=== PATIENT | female | born 1975 | race Caucasian/White ===

== ENCOUNTER 2021-10-08 06:39 | Emergency (ER) | payer MEDICAID, SELFPAY ==
[2021-10-08 07:13] VITALS: BP 133/77; PULSE 82; RESP 19; TEMP 36.6; O2SAT 100; BMI 23.3
--- NOTE | 2021-10-08 09:45 | ED.GENADULT ---
HPI - General Adult General Chief complaint: General Medical Stated complaint: muscle spasms back neck mid head shoulder blades Time Seen by Provider: 10/08/21 09:21 Source: patient Mode of arrival: ambulatory Limitations: no limitations History of Present Illness HPI narrative: Patient presents emergency department for evaluation of muscle spasms to the neck. She states that she has been having ongoing issues with back and neck pain since she has been driving/traveling across country for the past 4 years. She reports that 1 month ago she was evaluated in [place] had an MRI of her neck and back at that time, and was advised that she had rheumatoid arthritis. It is unclear whether she had any blood work obtained. However, she recently moved to this area about 2 weeks ago so she has not established any care with a primary care provider or any specialists. She was previously taking gabapentin BuSpar and hydroxyzine reportedly for her anxiety and baclofen for lower back pain. None of which seem to be helping her muscle spasms. She denies any headache, vision changes, dizziness, lightheadedness, numbness or tingling, chest pain, palpitations, shortness of breath, difficulty breathing, difficulty with ambulation. Related Data Previous Rx's Medication Instructions Recorded cyclobenzaprine 10 mg tablet 10 mg PO TID PRN muscle spasm #14 10/08/21 tabs Allergies Allergy/AdvReac Type Severity Reaction Status Date / Time No Known Allergies Allergy Verified 10/08/21 09:53 Review of Systems Review of Systems: Constitutional: No weight loss, fever, chills, weakness or fatigue. Skin: No rash or itching. Cardiovascular: No chest pain, chest pressure or chest discomfort. No palpitations or pedal edema. Respiratory: No shortness of breath, cough or sputum production. Gastrointestinal: No anorexia, nausea, vomiting or diarrhea. No abdominal pain Genitourinary: No burning micturition. No urinary frequency or incontinence. Musculoskeletal: Positive muscle spasms. Psychiatric: No depression or anxiety. [facility] Past Medical History Attestation statement: The following information was validated with the patient. Source: old records reviewed Social History Social History Advance Directives: No Advance Directives Information Provided: No Physical Exam ED Vital Signs: Vital Signs - 24 hr 10/08/21 07:13 Temperature 98 F Pulse Rate 82 Respiratory Rate 19 Blood Pressure 133/77 Pulse Oximetry 100 Oxygen Delivery Method Room Air BMI result Body Mass Index 23.3 Vital signs have been reviewed as normal and appeared to be correct. Blood pressure normal.? Heart rate normal.? Respiration rate normal. Temperature normal.? Oxygen saturation normal. Appearance: Alert.?Oriented to person, place and time. No acute distress.?Normal affect. Eyes: Pupils equal, round and reactive to light.? ENT: Pharynx normal.?? Neck: Normal inspection.? Neck supple.??Tenderness upon palpation of the paraspinal muscles CVS: Heart sounds normal. Normal heart rate and rhythm.? Pulses normal.?? Respiratory: No respiratory distress.? Lung sounds clear to auscultation bilaterally?? Abdomen: Soft and non-tender. Skin: Skin warm and dry.? Normal skin color.? Extremities: No lower extremity edema.? Neuro: Moves all extremities spontaneously. Sensation intact bilaterally. CN II-XII intact. No focal neuro deficits. Ambulates with normal steady gait. Course Course Course Narrative: Patient is a 46-year-old female with a reported past medical history of rheumatoid arthritis who presents emergency department for muscle spasms of her neck and shoulder muscles. This is been ongoing, but seems exacerbated over the past 4 days. Has reportedly ran out of her baclofen as well at the same time. Pain appears most consistent with muscular pain. On neurological exam there are no deficits. Not consistent with spinal fracture, spinal infection, epidural abscess. No high risk past medical history including incontinence, fever, immunosuppression, recent surgery or lumbar puncture, coagulopathy, significant trauma, recent unintentional weight loss, pulsatile mass, history of cancer, history of TB, history of IV drug use that would warrant MRI or CT. On exam no concern for cauda equina syndrome. No imaging is currently indicated at this time. Plan for discharge home with prescription for cyclobenzaprine, and given resources to contact new primary care provider to establish care with, discussed worsening signs and symptoms to return back to the emergency department for, and patient agreed with plan. Discharge Plan Discharge Clinical Impression: Cervical paraspinal muscle spasm Patient Disposition: Home, Self-Care Instructions: Muscle Spasm (ED) Additional Instructions: As we discussed the symptoms you are describing seem most consistent with spasming of the muscles along her neck and shoulders. You have been given a new medication to trial, cyclobenzaprine, this is a muscle relaxer. It may make you drowsy while taking this medication therefore you should not drive, operate machinery, or drink alcohol while taking the medication. It is important that you contact local primary care providers to establish care for further evaluation and treatment. You may return to the emergency department with any new or worsening symptoms or concerns Prescriptions: New cyclobenzaprine 10 mg tablet 10 mg PO TID PRN (Reason: muscle spasm) Qty: 14 0RF Interventions: ED Discharge Assessment Last Done: 10/08/21 10:04 Discharge Date/Time: 10/08/21 10:05
== END 2021-10-08 10:05 | disposition home or self-care (01) ==
PROVIDERS: Emergency Provider Emergency Medicine
DX: M62.838 Other muscle spasm (principal); M54.2 Cervicalgia; M06.9 Rheumatoid arthritis, unspecified
CPT/HCPCS: 99283

== ENCOUNTER 2021-10-13 02:09 | Emergency (ER) | payer MEDICAID, SELFPAY ==
[2021-10-13 02:14] VITALS: BP 147/96; PULSE 100; RESP 16; TEMP 36.8; O2SAT 99; BMI 24.1
[2021-10-13 02:37] LABS: UPreg QC Valid YES; Urine Pregnancy NEGATIVE (NEGATIVE)
[2021-10-13 02:38] LABS: Appearance Urine Clear; Color Urine Yellow; Glucose Urine UA Negative (Negative); Leukocyte Esterase Urine Negative (Negative); Nitrite Urine Negative (Negative); PH 5.5 (5.0-8.0); Specific Gravity - Urine 1.025 (1.005-1.025); Urine Blood Moderate (2+) (Negative); Urine Ketones Negative (Negative); Urine Protein Negative (Neg-Trace)
[2021-10-13 02:56] LABS: Amphetamine Screen Urine Not Detected (Not Detect); Barbiturates, Urine Not Detected (Not Detect); Benzodiazepines Screen Urine Not Detected (Not Detect); Cannabinoid Screen Urine POSITIVE (Not Detect); Cocaine Screen Urine Not Detected (Not Detect); Fentanyl, urine Not Detected (Not Detect); Opiate Screen Urine Not Detected (Not Detect); Phencyclidine Screen Urine Not Detected (Not Detect)
[2021-10-13 03:04] LABS: Bacteria Urine None Seen (None Seen); Hyaline Casts Urine 0-2 /LPF (0-2); RBC Urine 0-2 /HPF (0-2); WBC Urine 0-5 /HPF (0-5)
--- NOTE | 2021-10-13 03:28 | ED_ITS ---
HPI - General Adult General Chief complaint: Neck Pain/Injury Stated complaint: feels like muscles are turning in neck Time Seen by Provider: 10/13/21 03:27 Source: patient Mode of arrival: ambulatory Limitations: no limitations History of Present Illness HPI narrative: Patient with history of anxiety chronic pain syndrome on gabapentin baclofen buspirone and hydroxyzine and trazodone for some time about 4-5 years travels with her in the truck in different states primary doctor was in [place] of where she is not living there anymore and has moved to [place] comes here for upper neck muscle spasm unable to sleep tearful denies any suicidal ideation Related Data Previous Rx's Medication Instructions Recorded cyclobenzaprine 10 mg tablet 10 mg PO TID PRN muscle spasm #14 10/08/21 tabs baclofen 20 mg tablet 20 mg PO TID #90 tabs 10/13/21 buspirone 15 mg tablet 15 mg PO TID #90 tabs 10/13/21 gabapentin 600 mg tablet 600 mg PO TID #90 tabs 10/13/21 hydroxyzine HCl 50 mg tablet 50 mg PO TID PRN anxiety #60 tabs 10/13/21 trazodone 100 mg tablet 100 mg PO BEDTIME PRN insomnia #30 10/13/21 tabs Allergies Allergy/AdvReac Type Severity Reaction Status Date / Time No Known Allergies Allergy Verified 10/08/21 09:53 Review of Systems 2 Review of Systems: Yes all other systems are reviewed and are negative [facility] Social History Social History Advance Directives: No Advance Directives Information Provided: No Physical Exam ED Vital Signs: Vital Signs - 24 hr 10/13/21 02:14 Temperature 98.3 F Pulse Rate 100 Respiratory Rate 16 Blood Pressure 147/96 H Pulse Oximetry 99 Oxygen Delivery Method Room Air BMI result Body Mass Index 24.1 Appearance: Alert. Oriented X3. No acute distress. Tearful Eyes: PERRLA, No Nystagmus ENT: Pharynx normal. Oral Mucosa moist Neck: Normal inspection. Neck supple. Bilateral neck muscle spasm and upper back muscle spasm CVS: Normal heart rate and rhythm. Pulses normal. Respiratory: No respiratory distress. Equal air entry bilateral, no wheezing/rales/rhonchi Abdomen: Soft and nontender. Bowel sounds are present, no mass palpable, no CVA tenderness Skin: Skin warm and dry. Normal skin color. Normal skin turgor. Extremities: No lower extremity edema. No calf tenderness Neuro: Oriented X 3. No motor deficit. No sensory deficit.No cerebellar signs , cranial nerves II-XII intact Medical Decision Making MDM Narrative Medical decision making narrative: [facility] [place], phone number [phone], last refill was on 09/08. Will refill the prescription advised to follow-up with pain clinic/PCP Lab Data Labs: Lab Results 10/13/21 10/13/21 10/13/21 Range/Units 02:30 02:30 02:30 Urine Color Yellow Urine Appearance Clear Urine pH 5.5 (5.0-8.0) Ur Specific [place] 1.025 (1.005-1.025) Urine Protein Negative (Neg-Trace) mg/dL Urine Glucose (UA) Negative (Negative) mg/dL Urine Ketones Negative (Negative) mg/dL Urine Blood Moderate (2+) H (Negative) Urine Nitrite Negative (Negative) Ur Leukocyte Esterase Negative (Negative) Urine RBC 0-2 (0-2) /HPF Urine WBC 0-5 (0-5) /HPF Ur Squamous Epith Cells 6-10 (0-2) /HPF Urine Bacteria None Seen (None Seen) Hyaline Casts 0-2 (0-2) /LPF Urine Test NEGATIVE (NEGATIVE) Urine Opiates Screen Not Detected (Not Detect) Urine Fentanyl Screen Not Detected (Not Detect) Ur Barbiturates Screen Not Detected (Not Detect) Ur Phencyclidine Scrn Not Detected (Not Detect) Ur Amphetamines Screen Not Detected (Not Detect) U Benzodiazepines Scrn Not Detected (Not Detect) Urine Cocaine Screen Not Detected (Not Detect) U Marijuana (THC) Screen POSITIVE H (Not Detect) Discharge Plan Discharge Clinical Impression: Chronic pain syndrome, Anxiety Patient Disposition: Home, Self-Care Instructions: Chronic Pain (ED), Anxiety (ED) Additional Instructions: Follow with PCP / pain clinic for further evaluation and management Take Medication as refilled Prescriptions: New gabapentin 600 mg tablet 600 mg PO TID Qty: 90 0RF hydroxyzine HCl 50 mg tablet 50 mg PO TID PRN (Reason: anxiety) Qty: 60 0RF baclofen 20 mg tablet 20 mg PO TID Qty: 90 0RF buspirone 15 mg tablet 15 mg PO TID Qty: 90 0RF trazodone 100 mg tablet 100 mg PO BEDTIME PRN (Reason: insomnia) Qty: 30 0RF No Action cyclobenzaprine 10 mg tablet 10 mg PO TID PRN (Reason: muscle spasm) Qty: 14 0RF Referrals: Mira Loya MD [Physician] - 1 week Interventions: ED Discharge Assessment Last Done: 10/13/21 04:53 Discharge Date/Time: 10/13/21 04:54
[2021-10-13] MEDS: Gabapentin 600 MG TABLET PO (04:50)
== END 2021-10-13 04:54 | disposition home or self-care (01) ==
PROVIDERS: Emergency Provider Internal Medicine
DX: G89.4 Chronic pain syndrome (principal); F41.9 Anxiety disorder, unspecified; Z79.899 Other long term (current) drug therapy
CPT/HCPCS: 80307; 81001; 81025; 99282; 99283